=== PATIENT | female | born 1975 | race Two or more races ===

== ENCOUNTER 2017-05-08 22:03 | Emergency (ER) | payer OTHER ==
[~2017-05-08] VITALS: Ht 172.7 cm; Wt 68.0 kg
[2017-05-08] MEDS ORDERED: TRAMADOL HCL50 MG ORAL (22:19)
[2017-05-08 22:20] VITALS: BP 119/62
[2017-05-08] MEDS ORDERED: AUGMENTIN 875-1 EAC1 ORAL (22:37)
[2017-05-08] MEDS ORDERED: HYDROCODON-ACE1 EA15 ORAL (22:37)
--- NOTE | 2017-05-08 22:38 | Emergency Room Report ---
History of Present Illness General Chief Complaint: Animal Bite Source: Patient Present Illness HPI Is a 41-year-old female with previous back surgery. She presents with a dog bite to the left foot. Onset was last night. It was her neighbor dog. The dog was not on the leash. It bit her on her left foot. She also fell and twisted her back. She is previous back surgery and now is worse. Denies any other trauma. No loss of consciousness. The neighbor's dog was acting normally Allergies: Coded Allergies: No Known Allergies (Unverified , 05/08/17) Patient History Past Medical History: see triage record, old chart reviewed Past Surgical History: other Pertinent Family History: none Social History: Denies: smoking Last Menstrual Period: 03/26/17 Now: No : 2 Para: 2 Immunizations: other Reviewed Nursing Documentation: PMH: Agreed, PSxH: Agreed Nursing Documentation-PM Past Medical History: No Stated History Review of Systems Eye: Denies: blurred vision, eye pain ENT: Denies: ear pain, nose congestion, throat swelling Respiratory: Denies: cough, shortness of breath Cardiovascular: Denies: chest pain, palpitations Gastrointestinal: Denies: abdominal pain, diarrhea, nausea, vomiting Musculoskeletal: Reports: back pain, Denies: joint pain Skin: Denies: rash Neurological: Denies: headache, numbness Endocrine: Denies: increased thirst, increased urine Hematologic/Lymphatic: Denies: easy bruising All Other Systems: negative except mentioned in HPI Physical Exam Vital Signs Date Time Temp Pulse Resp B/P Pulse Ox O2 Delivery O2 Flow Rate FiO2 05/08/17 22:14 98.4 98 14 119/62 100 Room Air vitals normal Sp02 EP Interpretation: reviewed, normal General Appearance: well appearing, no apparent distress, alert Head: normocephalic, atraumatic Eyes: bilateral eye EOMI, bilateral eye PERRL ENT: hearing grossly normal, normal pharynx Neck: full range of motion, supple, no meningismus Respiratory: chest non-tender, lungs clear, normal breath sounds Cardiovascular #1: regular rate, rhythm, no murmur Gastrointestinal: normal bowel sounds, non tender, no mass, no organomegaly, no bruit, non-distended Musculoskeletal: back normal - Lower lumbar tenderness. No midline step-off, gait/station normal, normal range of motion, other - Left foot: dorsum of the foot there is a laceration/abrasion of 2 cm. Contused tissue surrounding it. Pulses normal. Sensation normal. Neurologic: alert, oriented x3 Psychiatric: mood/affect normal Skin: warm/dry Medical Decision Making Diagnostic Impression: Primary Impression: Dog bite of left foot Qualified Codes: S91.352A - Open bite, left foot, initial encounter; W54.0XXA - Bitten by dog, initial encounter Additional Impression: Strain of lumbar region Qualified Codes: S39.012A - Strain of muscle, fascia and tendon of lower back , initial encounter ER Course Patient with a dog bite to her left foot. Higher risk for infection. No evidence of abscess. This is the neighbor's dog and it can be observed. I will hold off any rabies shots right now. Antibiotics given. Last Vital Signs Date Time Temp Pulse Resp B/P Pulse Ox O2 Delivery O2 Flow Rate FiO2 05/08/17 22:20 98.4 98 14 119/62 100 Room Air Status: improved Disposition: HOME, SELF-CARE Condition: Stable Scripts Hydrocodone/Acetaminophen 5-325* (HYDROCODONE/ACETAMINOPHEN 5-325*) 1 Each Tablet 1 TAB ORAL Q6H Y for For Pain, #15 TAB 0 Refills Prov: CRISTINO ZURITA M.D. 05/08/17 Amoxicillin/Potassium Clav 875-125* (AUGMENTIN 875-125 TABLET*) 1 Each Tablet 1 TAB ORAL TWICE A DAY, #14 TAB Prov: CRISTINO ZURITA M.D. 05/08/17 Additional Instructions: Followup with your DrAubree in 3-5 days for recheck. Return if symptom worsen. If you're neighbor's dog in a week, animal control would need to biopsy its brain for rabies CRISTINO ZURITA M.D. May 08, 2017 22:38
[2017-05-08] MEDS ORDERED: Augmentin 875mg Tab ORAL ONE (22:45)
[2017-05-08] MEDS ORDERED: Norco 5mg/325mg tab ORAL ONE (22:45)
[2017-05-08 22:54] VITALS: BP 127/59
== END 2017-05-08 22:54 | disposition home or self-care (01) ==
LOC: EMR 22:32
DX: S91.352A Open bite, left foot, initial encounter (principal); S39.012A Strain of muscle, fascia and tendon of lower back, initial encounter; W54.0XXA Bitten by dog, initial encounter; Y92.9 Unspecified place or not applicable
CPT/HCPCS: 99284

== ENCOUNTER → 2018-04-23 | Emergency (ER) | payer OTHER ==
[~2018-04-23] VITALS: Ht 170.2 cm; Wt 68.0 kg
[~2018-04-23] MED LIST: AUGMENTIN 875-1 EAC1 ORAL; BACITRACIN-P28.35 GM TP; Bacitracin Oint UD TOPIC ONE; HYDROCODON-ACE1 EA15 ORAL; LIDODERM700 M1 TOPIC; METHOCARBAMOL500 MG ORAL; Prochlorperazine 10mg tab ORAL PRN; TRAMADOL HCL50 MG ORAL
[2018-04-23 17:43] VITALS: BP 110/70
--- NOTE | 2018-04-23 19:02 | Emergency Room Report ---
History of Present Illness General Chief Complaint: Animal Bite Source: Patient Present Illness HPI 42-year-old female presents emergency department complaining of alleged dog bite to the left ankle x 1 day. Patient states that she was allegedly attacked by a dog that has attacked her multiple times in the past. Patient states that she has already filed a report with [employer]. Patient states she is up-to -date with tetanus vaccination she reports 10 out of 10 in severity pain primarily in the lower back and neck. Dog's vaccination status is unknown. Patient states that she suffers from chronic back and neck pain and that she didn't with the dog aggravated her symptoms and she is now experiencing muscle spasms. Patient denies falling to the ground during dog attack. Patient reports dog bit her on the lateral left ankle she denies bleeding at this time she states that she believes that she may have just scraped her. Denies bruising, swelling or open wounds. patient also states that she has a headache associated with her neck and back pain. Patient also reports history of radiculopathy to the arms bilaterally which she is currently being considered for surgical intervention. Patient reports she has a history of migraines and is prescribed magnesium to take preventatively. Patient states that the incident has also aggravated her migraine. Patient denies nausea, vomiting, photophobia or hyperacusis. She reports pain is throbbing in nature to the right frontal aspect of the head. Patient ate symptoms are similar to previous migraines in the past. Denies numbness tingling or loss of sensation or gross motor movements of the extremities, incontinence of bowel or bladder. Denies CP , Palpitations, LOC, AMS, dizziness, Changes in Vision, weakness or a sudden severe headache. Allergies: Coded Allergies: No Known Allergies (Unverified , 05/08/17) Patient History Past Medical History: see triage record Past Surgical History: none Pertinent Family History: none Last Menstrual Period: 04/23/18 Now: No : 2 Para: 2 Reviewed Nursing Documentation: PMH: Agreed; PSxH: Agreed Nursing Documentation-PMH Past Medical History: No History, Except For Review of Systems All Other Systems: negative except mentioned in HPI Physical Exam Vital Signs Date Time Temp Pulse Resp B/P (MAP) Pulse Ox O2 Delivery O2 Flow Rate FiO2 04/23/18 17:32 98.2 71 16 110/70 98 Room Air 98.2 Sp02 EP Interpretation: reviewed, normal General Appearance: no apparent distress, alert, GCS 15, non-toxic Head: normocephalic, atraumatic Eyes: bilateral eye normal inspection, bilateral eye PERRL ENT: hearing grossly normal, normal voice Neck: full range of motion, tender lateral - bilateral ttp, no obvious deformity, no step off, FROM, no significant midline spinous process ttp. Respiratory: chest non-tender, lungs clear, normal breath sounds, no wheezing, speaking full sentences Cardiovascular #1: regular rate, rhythm Musculoskeletal: back normal, gait/station normal, normal range of motion, tender - TTP to the bilateral paraspinal musculature of the lumbar spine and the cervical regions, no obvious deformities, step-offs or localzed spinous process ttp. there is a lumbar surgical scar noted to be healed with no evidence of infection. Neurologic: alert, oriented x3, responsive, motor strength/tone normal, sensory intact, normal gait, speech normal, grossly normal Psychiatric: judgement/insight normal Skin: normal color, no rash, warm/dry, well hydrated, abrasions - abrasion to the lateral left ankle, no through all layers of the skin, no obvious puncture wound, superficial and no evidence of bleeding. Medical Decision Making PA Attestation Dr. Barker is my supervising Physician whom patient management has been discussed with. Diagnostic Impression: Primary Impression: Dog bite of ankle Qualified Codes: S91.052A - Open bite, left ankle, initial encounter; W54.0XXA - Bitten by dog, initial encounter Additional Impressions: Muscle spasm of back Muscle spasms of neck History of lumbar spinal fusion History of radiculopathy ER Course 42-year-old female presents emergency department complaining of alleged dog bite to the left ankle x 1 day. Patient states that she was allegedly attacked by a dog that has attacked her multiple times in the past. Patient states that she has already filed a report with [employer]. Patient states she is up-to -date with tetanus vaccination she reports 10 out of 10 in severity pain primarily in the lower back and neck. Dog's vaccination status is unknown. Patient states that she suffers from chronic back and neck pain and that she didn't with the dog aggravated her symptoms and she is now experiencing muscle spasms. Patient denies falling to the ground during dog attack. Patient reports dog bit her on the lateral left ankle she denies bleeding at this time she states that she believes that she may have just scraped her. Denies bruising, swelling or open wounds. patient also states that she has a headache associated with her neck and back pain. Patient also reports history of radiculopathy to the arms bilaterally which she is currently being considered for surgical intervention. Patient reports she has a history of migraines and is prescribed magnesium to take preventatively. Patient states that the incident has also aggravated her migraine. Patient denies nausea, vomiting, photophobia or hyperacusis. She reports pain is throbbing in nature to the right frontal aspect of the head. Patient ate symptoms are similar to previous migraines in the past. Denies numbness tingling or loss of sensation or gross motor movements of the extremities, incontinence of bowel or bladder. Denies CP , Palpitations, LOC, AMS, dizziness, Changes in Vision, weakness or a sudden severe headache. Ddx considered but are not limited to Cellulitis, rabies, fracture, neurovascular compromise of extremity, Exacerbation of chronic pain, mental cord injury, or cauda equina syndrome just to name a few. Vital signs: are WNL, pt. is afebrile H&PE are most consistent with Superficial abrasion approximately 1.5 cm in length the left lateral ankle allegedly by dog, no puncture wound, no bleeding. Does not puncture through all layers of the skin. No evidence of focal neurological deficit, normal gait, full range of motion, moderate paraspinal and Junior palpation to the lumbar area as well as the bilateral cervical paraspinal musculature. No midline spinous process neck or back tenderness. Obvious surgical scar in the lumbar region midline. No evidence of cauda equina /saddle anesthesia. ORDERS: none required at this time, the diagnosis is clinical ED INTERVENTIONS: - lidoderm patch to lumbar back. - Compazine PO for CHAKRABORTY -Wound care and bacitracin to superficial abrasion of left ankle. DISCHARGE: At this time pt. is stable for d/c to home. Will provide printed patient care instructions, and any necessary prescriptions. Care plan and follow up instructions have been discussed with the patient prior to discharge. Last Vital Signs Date Time Temp Pulse Resp B/P (MAP) Pulse Ox O2 Delivery O2 Flow Rate FiO2 04/23/18 17:43 98.2 76 16 110/70 98 Room Air 98.2 Disposition: HOME, SELF-CARE Condition: Stable Scripts Bacitracin/Polymyxin B Sulfate (BACITRACIN-POLYMYXIN OINTMENT) 28.35 Gm Oint...g. 1 APPLIC TP BID, #28.3 GM Prov: Coral Steiner 04/23/18 Methocarbamol* (METHOCARBAMOL*) 500 Mg Tablet 1000 MG ORAL TID PRN for For Pain for 7 Days, #42 TAB 0 Refills Prov: Coral Steiner 04/23/18 Lidocaine (Lidoderm) 1 Each Adh..patch 1 PATCH TOPIC DAILY, #30 PATCH 0 Refills Patch(es) may remain in place for up to 12 hours in any 24-hour period. Prov: Coral Steiner 04/23/18 Referrals: [facility] (PCP) Patient Instructions: Animal Bite, Muscle Cramps and Spasms, [id number] Additional Instructions: Take medications as directed. Follow up with Your PCP/ Neurologist in 3-5 days, even if your symptoms have resolved. Return sooner to ED if new symptoms occur, or current symptoms become worse. Do not drink alcohol, drive, or operate heavy machinery while taking Muscle Relaxers as this may cause drowsiness. - Please note that this Emergency Department Report was dictated using [employer] technology software, occasionally this can lead to erroneous entry secondary to interpretation by the dictation equipment. Coral Steiner Apr 23, 2018 19:02
== END | disposition home or self-care (01) ==
LOC: EMR 18:17
DX: S91.052A Open bite, left ankle, initial encounter (principal); W54.0XXA Bitten by dog, initial encounter; M62.830 Muscle spasm of back; Z98.1 Arthrodesis status; M54.10 Radiculopathy, site unspecified
CPT/HCPCS: 99284

== ENCOUNTER 2018-07-15 21:42 | Emergency (ER) | payer OTHER ==
[~2018-07-15] VITALS: Ht 172.7 cm; Wt 63.5 kg
[~2018-07-15 21:42] MED LIST changes: -Bacitracin Oint UD TOPIC ONE; -Prochlorperazine 10mg tab ORAL PRN
--- NOTE | 2018-07-15 22:05 | Emergency Room Report ---
History of Present Illness General Chief Complaint: Lower Extremity Injury Source: Patient Present Illness HPI Is a 43-year-old female with spinal surgery the past with neuropathy. She bumped her left foot against a dresser this morning. Minimal pain. Better with her Percocet. No nausea no vomiting. No other injury. Right now pain is 7 out of 10. Worse with walking. Allergies: Coded Allergies: No Known Allergies (Unverified , 05/08/17) Patient History Past Medical History: see triage record, old chart reviewed Past Surgical History: other Pertinent Family History: none Social History: Denies: smoking Last Menstrual Period: Jul Now: No Immunizations: other Reviewed Nursing Documentation: PMH: Agreed; PSxH: Agreed Nursing Documentation-PMH Past Medical History: No Stated History Review of Systems Eye: Denies: eye pain, blurred vision ENT: Denies: ear pain, nose congestion, throat swelling Respiratory: Denies: cough, shortness of breath Cardiovascular: Denies: chest pain, palpitations Gastrointestinal: Denies: abdominal pain, diarrhea, nausea, vomiting Musculoskeletal: Reports: joint pain; Denies: back pain Skin: Denies: rash Neurological: Denies: headache, numbness Endocrine: Denies: increased thirst, increased urine Hematologic/Lymphatic: Denies: easy bruising All Other Systems: negative except mentioned in HPI Physical Exam Vital Signs Date Time Temp Pulse Resp B/P (MAP) Pulse Ox O2 Delivery O2 Flow Rate FiO2 07/15/18 21:49 99.0 78 16 117/81 99 Room Air 99.0 vitals normal Sp02 EP Interpretation: reviewed, normal General Appearance: well appearing, no apparent distress, alert Head: normocephalic, atraumatic Eyes: bilateral eye PERRL, bilateral eye EOMI ENT: hearing grossly normal, normal pharynx Neck: full range of motion, supple, no meningismus Respiratory: chest non-tender, lungs clear, normal breath sounds Cardiovascular #1: regular rate, rhythm, no murmur Gastrointestinal: normal bowel sounds, non tender, no mass, no organomegaly, no bruit, non-distended Musculoskeletal: back normal, gait/station normal, normal range of motion, other Psychiatric: mood/affect normal Skin: warm/dry Procedures Splinting Splinting : Consent: Verbal Location: toes Pre-Made Type: gurvinder taping Pre-Proc Neuro Vasc Exam: normal Post-Proc Neuro Vasc Exam: normal Patient Tolerated: Well Complications: None Medical Decision Making Diagnostic Impression: Primary Impression: Toe fracture, left Qualified Codes: S92.912A - Unspecified fracture of left toe(s), initial encounter for closed fracture ER Course Patient presents with fracture of the left fourth toe. No displacement. Toes gurvinder taped an orthopedist she is given. We'll discharge home. No metatarsal fracture. Other X-Ray Diagnostic Results Other X-Ray Diagnostic Results : X-Ray ordered: Left foot x-rays # of Views/Limited Vs Complete: 4 View Indication: Pain EP Interpretation: Yes Interpretation: no dislocation, no soft tissue swelling, other - Nondisplaced left fourth proximal phalanx fracture Impression: Other - 4th toe frx Electronically Signed by: Dontae Jackson MD Last Vital Signs Date Time Temp Pulse Resp B/P (MAP) Pulse Ox O2 Delivery O2 Flow Rate FiO2 07/15/18 21:49 99.0 78 16 117/81 99 Room Air 99.0 Status: improved Disposition: HOME, SELF-CARE Condition: Stable Scripts Ibuprofen* (MOTRIN*) 600 Mg Tablet 600 MG ORAL THREE TIMES A DAY, #30 TAB 0 Refills Prov: DONTAE JACKSON M.D. 07/15/18 Referrals: [facility] (PCP) Additional Instructions: Elevate foot. Ice pack to the area. Follow-up with your doctor in 7 days. Return if worse. DONTAE JACKSON M.D. Jul 15, 2018 22:05
[2018-07-15] MEDS ORDERED: IBUPROFEN600 MG ORAL (22:24)
[2018-07-15 22:50] VITALS: BP 117/81
--- NOTE | 2018-07-16 09:43 | Diagnostic Imaging Report ---
Indication: Foot pain Comparison: None Findings: 3 views of the left foot were obtained. No acute fractures, malalignment, erosions or periostitis are identified. Soft tissues are unremarkable. Impression: No acute findings
== END 2018-07-15 22:48 | disposition home or self-care (01) ==
LOC: EMR 21:47
DX: S92.912A Unspecified fracture of left toe(s), initial encounter for closed fracture (principal); M79.672 Pain in left foot; W22.8XXA Striking against or struck by other objects, initial encounter; Y92.009 Unspecified place in unspecified non-institutional (private) residence as the place of occurrence of the external cause; Y93.9 Activity, unspecified; Y99.9 Unspecified external cause status
CPT/HCPCS: 99283

== ENCOUNTER 2018-11-22 21:14 | Emergency (ER) | payer OTHER ==
[~2018-11-22] VITALS: Ht 170.2 cm; Wt 68.0 kg
[~2018-11-22 21:14] MED LIST changes: +IBUPROFEN600 MG ORAL
--- NOTE | 2018-11-22 21:43 | Emergency Room Report ---
History of Present Illness General Chief Complaint: Back Injury Source: Patient Present Illness HPI Patient reports a fall approximately 3:00 in the afternoon today reports that her right leg gave out and she fell towards her right side Pain to the right wrist right hip area Also right shoulder and lower back Denies any chest pain denies any loss of consciousness Patient reports that she has had multiple Back surgeries including fusion she is due for a Neck surgery as well However was putting that off Allergies: Coded Allergies: No Known Allergies (Unverified , 11/22/18) Patient History Past Medical History: see triage record Pertinent Family History: none Last Menstrual Period: [id number] Now: No Reviewed Nursing Documentation: PMH: Agreed; PSxH: Agreed Nursing Documentation-PMH Past Medical History: No Stated History Review of Systems All Other Systems: negative except mentioned in HPI Physical Exam Vital Signs Date Time Temp Pulse Resp B/P (MAP) Pulse Ox O2 Delivery O2 Flow Rate FiO2 11/22/18 21:24 98.6 86 16 111/69 98 Room Air Sp02 EP Interpretation: reviewed, normal General Appearance: no apparent distress Head: normocephalic, atraumatic Eyes: bilateral eye PERRL, bilateral eye EOMI ENT: hearing grossly normal Neck: supple, no bony tend - Increased discomfort paraspinal C3-C4-C5 bilaterally Respiratory: lungs clear, no retraction, no accessory muscle use Cardiovascular #1: regular rate, rhythm Gastrointestinal: non tender, soft Genitourinary: no CVA tenderness Musculoskeletal: other - Equal incubator tender bilaterally able to flex and extend both feet without focal deficit Neurologic: alert, oriented x3, responsive Skin: normal inspection, normal color Lymphatic: no adenopathy Medical Decision Making Diagnostic Impression: Primary Impression: Contusion ER Course Patient has significant past medical history including lumbar spine fusion cervical spine disease has had progressive worsening of her symptoms Does not show any signs of cauda equina syndrome Sensory is intact Imaging study did not show any acute pathology Review of [facility] system reveals patient under care of pain management and will continue outpatient care Other X-Ray Diagnostic Results Other X-Ray Diagnostic Results #1: X-Ray ordered: Right shoulder # of Views/Limited Vs Complete: 3 View Indication: Pain EP Interpretation: Yes Interpretation: no dislocation, no soft tissue swelling, no fractures Impression: No acute disease Other X-Ray Diagnostic Results #2: X-Ray ordered: Right wrist # of Views/Limited Vs Complete: 3 View Indication: Pain EP Interpretation: Yes Interpretation: no dislocation, no soft tissue swelling, no fractures Impression: No acute disease Electronically Signed by: Beatriz Nelson DO CT/MRI/US Diagnostic Results CT/MRI/US Diagnostic Results : Impression CT pelvic no acute disease Last Vital Signs Date Time Temp Pulse Resp B/P (MAP) Pulse Ox O2 Delivery O2 Flow Rate FiO2 11/22/18 21:24 98.6 86 16 111/69 98 Room Air Status: improved Disposition: HOME, SELF-CARE Condition: Improved Additional Instructions: Patient is provided with the discharge instructions notified to follow up with primary doctor in the next 2-3 days otherwise return to the er with any worsening symptoms. Please note that this report is being documented using [employer] technology. This can lead to erroneous entry secondary to incorrect interpretation by the dictating instrument. Beatriz Nelson DO Nov 22, 2018 21:43
[2018-11-22] MEDS ORDERED: Ketorolac 60mg Inj IM ONE (21:45)
[2018-11-22 22:47] VITALS: BP 112/69
--- NOTE | 2018-11-23 09:18 | Diagnostic Imaging Report ---
Indication: Pelvic pain. Trauma Technique: Continuous helical transaxial imaging of the pelvis was obtained from the iliac crest to the pubic symphysis. Coronal 2-D reformats were also obtained. Study obtained in a Siemens sensation [address] Intravenous non-ionic contrast was administered. Total Dose length Product (DLP): 435.[address] Dose Index Volume (CTDIvol): 12.9 mGy Comparison: None Findings: No acute fractures identified. Alignment of the hips and sacroiliac joints appears normal. There are degenerative changes of the lower lumbar spine. The patient has had previous discectomy at L4-5 and posterior lumbar fusion at L4-5. There is a left unilateral pedicle screw at L4 and the left hemilaminectomy at L4. There is a fusion screw at the right L4-5 facet. Arterial calcifications are present within the visualized portion of the iliac arteries. Uterus is noted. Bladder is grossly unremarkable. There is no free fluid identified within the pelvis. IMPRESSION: No acute injury appreciated. Multiple incidental findings as discussed above. [facility] has communicated the preliminary results to the Emergency Department. Their findings are largely concordant with this report. The CT scanner at [facility] is accredited by the [employer] [place] [employer] [place] [employer] and the scans are performed using dose optimization techniques as appropriate to a performed exam including Automatic Exposure control.
--- NOTE | 2018-11-23 10:58 | Diagnostic Imaging Report ---
Indication: Right shoulder pain Findings: 3 views of the right shoulder were obtained. No acute fractures, malalignment, erosions or periostitis are identified. Bones are osteopenic. Soft tissues are unremarkable. Impression: Negative for acute injury
--- NOTE | 2018-11-23 11:01 | Diagnostic Imaging Report ---
Indication: Right wrist pain Findings: 3 views of the right wrist were obtained. No acute fractures, malalignment, erosions or periostitis are identified. There is a negative ulnar variance noted. Soft tissues are unremarkable. Impression: No acute findings. Negative ulnar variance
== END 2018-11-22 22:47 | disposition home or self-care (01) ==
LOC: EMR 21:29
DX: S30.0XXA Contusion of lower back and pelvis, initial encounter (principal); M54.5 Low back pain; M25.531 Pain in right wrist; M25.511 Pain in right shoulder; W19.XXXA Unspecified fall, initial encounter; Z98.1 Arthrodesis status
CPT/HCPCS: 72192; 96372; 99284